=== PATIENT | female | born 1980 | race Caucasian/White ===

== ENCOUNTER 2021-07-09 15:02 | Outpatient (CLI) | payer OTHER ==
[2021-07-10 13:56] LABS: SARS-CoV-2 PCR by NAA Not Detected (NotDetected)
== END 2021-07-09 15:03 | disposition home or self-care (01) ==
LOC: CSHLAB 15:02
PROVIDERS: ATTEND Obstetrics & Gynecology
DX: Z20.822 Contact with and (suspected) exposure to COVID-19 (principal)
CPT/HCPCS: U0003; U0005

== ENCOUNTER 2021-07-13 05:28 | Inpatient (IN) | payer OTHER ==
[2021-07-13] MEDS ORDERED: Ibuprofen 800 MG TAB PO PRN (05:36)
[2021-07-13] MEDS ORDERED: Promethazine HCl 25 MG/ML VIAL IM PRN ×2 (05:36→15:11)
[2021-07-13] MEDS ORDERED: Ondansetron PF 4 MG/2 ML Vial IVP PRN ×2 (05:36→15:11)
[2021-07-13] MEDS ORDERED: NS w/ Oxytocin 30 units 500 ML IV SCH ×2 (05:36)
[2021-07-13] MEDS ORDERED: Diphenoxylate HCl/Atropine Tablet PO PRN ×2 (05:36)
[2021-07-13] MEDS ORDERED: Carboprost 250 MCG/ML AMP IM PRN (05:36)
[2021-07-13] MEDS ORDERED: hydrALAZINE 20 MG/ML VIAL SLOW IVP PRN (05:36)
[2021-07-13] MEDS ORDERED: Butorphanol Tartrate 1 MG/ML VIAL SLOW IVP PRN (05:36)
[2021-07-13] MEDS ORDERED: Acetaminophen 500 MG TAB PO PRN (05:36)
[2021-07-13] MEDS ORDERED: HYDROcodone/Acetaminophen 5/325 mg Tablet PO PRN ×2 (05:36)
[2021-07-13] MEDS ORDERED: Lidocaine 1% (PF) 30 ML VIAL SC PRN (05:36)
[2021-07-13] MEDS ORDERED: Misoprostol 200 MCG TAB PR PRN (05:36)
[2021-07-13 05:38] VITALS: BMI 35.8
[2021-07-13 06:26] LABS: Mean Corpuscular HGB CONC 32.6 g/dL (32.0-36.0); Mean Corpuscular Hemoglobin 28.6 pg (27.0-33.0); Mean Corpuscular Volume 87.8 fl (81.6-98.3); Mean Platelet Volume 11.5 fl (7.4-10.4); Platelet Count 233 10x3/uL (150-450); RBC Distribution Width 15.2 % (11.5-14.5); Red Blood Cell (RBC) Count 4.19 10x6/uL (3.90-5.03); White Blood Cell (WBC) Count 15.9 10x3/uL (3.5-10.5)
[2021-07-13 07:11] LABS: ALT (SGPT) 10 U/L (8-55); AST (SGOT) 13 U/L (5-34); Albumin 3.1 g/dL (3.5-5.0); Alkaline Phosphatase 102 U/L (40-110); Anion Gap 18 mmol/L (10-20); BUN (Urea Nitrogen) 14 mg/dL (7.0-18.7); Bilirubin, Total 0.5 mg/dL (0.2-1.2); Calc. Creatinine Clearance 174 mL/min (70-130); Calcium 9.7 mg/dL (7.8-10.44); Carbon Dioxide 18 mmol/L (22-29); Chloride 107 mmol/L (98-107); Globulin 3.3 g/dL (2.4-3.5); Glucose 108 mg/dL (70-105); Potassium 3.8 mmol/L (3.5-5.1); Protein, Total 6.4 g/dL (6.0-8.3); Sodium 139 mmol/L (136-145)
[2021-07-13 07:43] LABS: Syphilis Antibody Nonreactive (Nonreactive); Syphilis Antibody Index 0.02 S/CO (<1.00 Non-Reactive)
[2021-07-13 07:48] LABS: Hep B Surf Ag Non-Reactive S/CO (NonReactive)
[2021-07-13 08:04] LABS: HBSAg Index 0.14 S/CO (0-0.99)
[2021-07-13] MEDS: Lactated Ringer's 1,000 ML IV SCH ×2 (12:43→21:03)
[2021-07-13] MEDS ORDERED: Fentanyl 2 mcg/Bup 0.1% Cadd 100 ML ONE (14:23)
[2021-07-13] MEDS ORDERED: diphenhydrAMINE 50 MG/ML VIAL IVP PRN (15:11)
[2021-07-13] MEDS ORDERED: ePHEDrine Sulfate 50 MG/10 ML VIAL SLOW IVP PRN (15:11)
[2021-07-13] MEDS ORDERED: Naloxone HCl 0.4 mg/ml Vial IVP PRN ×2 (15:11)
[2021-07-13] MEDS ORDERED: Lactated Ringer's 500 ML IV PRN (15:11)
[2021-07-13] MEDS ORDERED: Acetaminophen 325 MG TAB PO PRN (15:11)
[2021-07-13] MEDS ORDERED: Hydrocerin (Eucerin) Cream 120 gm Jar TOP PRN (15:11)
[2021-07-13] MEDS ORDERED: Communication Order-Pharmacy FS SCH (15:15)
[2021-07-13] MEDS: Fentanyl 2 mcg/Bupivacaine 0.1% Cassette 100 ML EPIDURAL SCH (21:03)
[2021-07-14] MEDS: Fentanyl 2 mcg/Bupivacaine 0.1% Cassette 100 ML EPIDURAL SCH (03:38)
[2021-07-14] MEDS: Lactated Ringer's 1,000 ML IV SCH ×2 (06:25→17:35)
[2021-07-14] MEDS ORDERED: Misoprostol 200 MCG TAB ONE (13:10)
[2021-07-14] MEDS ORDERED: NS w/ Oxytocin 30 units 500 ML ONE ×2 (13:11→16:32)
[2021-07-14] MEDS ORDERED: Misoprostol 100 MCG TAB ONE (13:11)
[2021-07-14] MEDS ORDERED: Carboprost 250 MCG/ML AMP ONE (13:12)
[2021-07-14] MEDS ORDERED: Boostrix 0.5 ML (Tdap) VIAL IM ONE (15:04)
[2021-07-14] MEDS ORDERED: Lanolin Ointment 7 GM TUBE TOP PRN (15:04)
[2021-07-14] MEDS ORDERED: Bisacodyl 10 MG SUPP PR PRN (15:04)
[2021-07-14] MEDS ORDERED: Benzocaine-Menthol 82.5 ML CAN TOP PRN (15:04)
[2021-07-14] MEDS ORDERED: Milk Of Magnesia 30 ML UDCUP PO PRN (15:04)
[2021-07-14] MEDS ORDERED: hydrALAZINE 20 MG/ML VIAL SLOW IVP PRN (15:04)
[2021-07-14] MEDS: traMADol HCl 50 MG TAB PO PRN (17:33)
[2021-07-14] MEDS: Ferrous Sulfate 325 MG TAB PO SCH (17:35)
[2021-07-14] MEDS: Ibuprofen 800 MG TAB PO SCH (21:08)
[2021-07-14] MEDS: Docusate Calcium (SURFAK) 240 MG CAP PO SCH (21:09)
[2021-07-15] MEDS: traMADol HCl 50 MG TAB PO PRN (00:27)
[2021-07-15] MEDS: Ibuprofen 800 MG TAB PO SCH ×4 (05:16→22:32)
[2021-07-15] MEDS: Ferrous Sulfate 325 MG TAB PO SCH (07:22)
[2021-07-15] MEDS: Docusate Calcium (SURFAK) 240 MG CAP PO SCH ×2 (08:18→22:32)
[2021-07-16] MEDS: Ibuprofen 800 MG TAB PO SCH (05:37)
[2021-07-16] MEDS: Ferrous Sulfate 325 MG TAB PO SCH (07:22)
[2021-07-16] MEDS: Docusate Calcium (SURFAK) 240 MG CAP PO SCH (08:20)
[2021-07-16 11:19] VITALS: BP 141/89; TEMP 98.7
== END 2021-07-16 12:55 | disposition home or self-care (01) | DRG 807 ==
LOC: CSHLD 05:28 → CSHPP 07-14 16:50
PROVIDERS: ADMIT Obstetrics & Gynecology; ATTEND Obstetrics & Gynecology
PROC: 10E0XZZ Delivery of Products of Conception, External Approach (ICD-10-PCS; principal; 2021-07-14)
PROC: 0KQM0ZZ Repair Perineum Muscle, Open Approach (ICD-10-PCS; 2021-07-14)
PROC: 10907ZC Drainage of Amniotic Fluid, Therapeutic from Products of Conception, Via Natural or Artificial Opening (ICD-10-PCS; 2021-07-14)
DX: O34.211 Maternal care for low transverse scar from previous cesarean delivery (principal); Z37.0 Single live birth; O13.4 Gestational [pregnancy-induced] hypertension without significant proteinuria, complicating childbirth; Z3A.37 37 weeks gestation of pregnancy; O69.81X0 Labor and delivery complicated by cord around neck, without compression, not applicable or unspecified; O70.1 Second degree perineal laceration during delivery; O14.04 Mild to moderate pre-eclampsia, complicating childbirth; Z20.822 Contact with and (suspected) exposure to COVID-19
CPT/HCPCS: 36415; 51702; 80053; 85027; 86780; 86850; 86870; 86900; 86901; 87340; J0595; J2590; J7120

== ENCOUNTER 2023-12-18 12:47 | Outpatient (CLI) | payer BC | END 2023-12-18 12:48 | disposition home or self-care (01) | LOC: CSHULT 12:47 | PROVIDERS: ATTEND Family Medicine | DX: R10.2 Pelvic and perineal pain (principal); R19.09 Other intra-abdominal and pelvic swelling, mass and lump; N85.9 Noninflammatory disorder of uterus, unspecified; R19.03 Right lower quadrant abdominal swelling, mass and lump | CPT/HCPCS: 76856; 76999 ==

== ENCOUNTER 2024-05-17 15:22 | Outpatient (CLI) | payer BC | END 2024-05-17 15:23 | disposition home or self-care (01) | LOC: CSHMAMMO 15:22 | PROVIDERS: ATTEND Family Medicine | DX: Z12.31 Encounter for screening mammogram for malignant neoplasm of breast (principal) | CPT/HCPCS: 77063; 77067 ==